=== PATIENT | female | born 1940 | race Caucasian/White ===

== ENCOUNTER → 2019-08-16 | Outpatient (CLI) | payer MEDICARE | END | disposition home or self-care (01) | LOC: SHCH 08:35 | PROVIDERS: ATTEND Internal Medicine Cardiovascular Disease | DX: I11.9 Hypertensive heart disease without heart failure (principal); I06.1 Rheumatic aortic insufficiency; I48.0 Paroxysmal atrial fibrillation | CPT/HCPCS: 93306 ==